=== PATIENT | female | born 1965 | race African-American/Black ===

== ENCOUNTER → 2019-04-19 | Outpatient (CLI) | payer BC ==
--- NOTE | 2019-04-19 16:05 | KCIC ---
Chest 2 view HISTORY: Cough COMPARISON: None FINDINGS: The heart and pulmonary vasculature appears within normal limits. The lungs are well expanded and clear. No effusion or pneumothorax. IMPRESSION: Negative two-view chest exam Electronically signed by: Fausto Corral MD (04/19/2019 4:03 PM) [facility] [place]
== END | disposition home or self-care (01) ==
LOC: KCIC 12:15
PROVIDERS: ATTEND Otolaryngology
DX: R05 Cough (principal); Z87.09 Personal history of other diseases of the respiratory system
CPT/HCPCS: 71046